=== PATIENT | female | born 1985 | race Two or more races ===

== ENCOUNTER 2022-02-12 10:30 | Inpatient (IN) | payer OTHER ==
[~2022-02-12] VITALS: Ht 154.9 cm; Wt 60.3 kg
[2022-02-18] MEDS ORDERED: ORILISSA150 MG (08:59)
[2022-02-18] MEDS ORDERED: PROGESTERONE200 MG (08:59)
== END 2022-02-21 10:36 | disposition home or self-care (01) | DRG 743 ==
LOC: O/R 02-18 05:20 → OB/GYN 02-18 05:20 → SURG 02-18 10:30 → OB/GYN 02-18 12:01
PROVIDERS: ADMIT Specialist; ATTEND Specialist
PROC: 0UT60ZZ Resection of Left Fallopian Tube, Open Approach (ICD-10-PCS; 2022-02-18)
PROC: 0DNW0ZZ Release Peritoneum, Open Approach (ICD-10-PCS; 2022-02-18)
PROC: 3E1M38Z Irrigation of Peritoneal Cavity using Irrigating Substance, Percutaneous Approach (ICD-10-PCS; 2022-02-18)
PROC: 0UB20ZZ Excision of Bilateral Ovaries, Open Approach (ICD-10-PCS; principal; 2022-02-18 11:00)
DX: D27.1 Benign neoplasm of left ovary (principal); D27.0 Benign neoplasm of right ovary; N83.11 Corpus luteum cyst of right ovary; K66.0 Peritoneal adhesions (postprocedural) (postinfection); Z20.822 Contact with and (suspected) exposure to COVID-19